=== PATIENT | female | born 2000 | race Two or more races ===

== ENCOUNTER 2022-03-11 13:52 | Emergency (ER) | payer MEDICAID, OTHER ==
[~2022-03-11] VITALS: Ht 165.1 cm; Wt 72.0 kg
[2022-03-11] MEDS ORDERED: EPINEPHrine HCL 1 MG/1 ML AMP SC ONE (15:30)
[2022-03-11] MEDS ORDERED: methylPREDNISolone SOD SUCC 125 MG/2 ML VL IM ONE (15:30)
[2022-03-11 15:32] VITALS: BP 121/72
[2022-03-11] MEDS ORDERED: HYDR50CA PO (15:55)
[2022-03-11] MEDS ORDERED: PRED20TA2 PO (15:55)
== END 2022-03-11 16:07 | disposition home or self-care (01) ==
LOC: ER 13:52
DX: L23.9 Allergic contact dermatitis, unspecified cause (principal)
CPT/HCPCS: 96372; 99284; J0171; J2930